=== PATIENT | male | born 1975 | race Caucasian/White ===

== ENCOUNTER 2017-08-22 21:33 | Emergency (ER) | payer MEDICAID ==
[2017-08-22 23:16] LABS: EOSINOPHILS 2.1 % (0-7); HEMATOCRIT 39.1 % (42.0-54.0); IMMATURE GRANULOCYTES 0.2 % (0-5); LYMPHOCYTES 22.9 % (15-50); MCHC 33.2 g/dL (31.0-37.0); MCV 84.1 fL (80.0-100.0); MEAN PLATELET VOLUME 9.1 fL (7.4-10.4); MONOCYTES 10.5 % (2-11); NEUTROPHILS 63.3 % (40-80); PLATELET COUNT 214 10x3/uL (130-400); RBC 4.65 10x6/uL (4.20-6.10); WBC 6.3 10x3/uL (4.8-10.8)
[2017-08-22 23:33] LABS: ALBUMIN 3.6 g/dL (3.4-5.0); ANION GAP 14.9 mmol/L (8-16); BILIRUBIN - TOTAL 0.3 mg/dL (0.2-1.3); CALCIUM 8.5 mg/dL (8.5-10.1); CARBON DIOXIDE 25.7 mmol/L (21.0-32.0); CREATININE - SERUM 1.2 mg/dL (0.6-1.3); POTASSIUM - SERUM 3.6 mmol/L (3.5-5.1); PROTEIN - SERUM 6.7 g/dL (6.4-8.2)
[2017-08-23 00:28] LABS: APPEARANCE CLEAR (CLEAR); BILIRUBIN NEGATIVE (NEGATIVE); COLOR YELLOW (YELLOW); GLUCOSE NEGATIVE (NEGATIVE); KETONE NEGATIVE (NEGATIVE); NITRITE NEGATIVE (NEGATIVE); PROTEIN NEGATIVE (NEGATIVE); UROBILINOGEN NORMAL (NORMAL)
[2017-08-23 00:29] LABS: BACTERIA NONE SEEN /hpf (NONE SEEN); EPITHELIAL CELLS 0-5 /hpf (0-5); RED CELLS - URINE 0-5 /hpf (0-5); WHITE CELLS - URINE 0-5 /hpf (0-5)
== END 2017-08-23 03:00 | disposition home or self-care (01) ==
LOC: D.ER 21:33
PROVIDERS: Family Medicine
DX: R10.31 Right lower quadrant pain (principal); Z85.038 Personal history of other malignant neoplasm of large intestine

== ENCOUNTER 2017-08-25 07:47 | Emergency (ER) | payer MEDICAID | END 2017-08-25 08:50 | disposition home or self-care (01) | LOC: D.ER 07:47 | DX: S60.222A Contusion of left hand, initial encounter (principal); X50.1XXA Overexertion from prolonged static or awkward postures, initial encounter; Y93.89 Activity, other specified; Y92.89 Other specified places as the place of occurrence of the external cause; S63.92XA Sprain of unspecified part of left wrist and hand, initial encounter; S63.502A Unspecified sprain of left wrist, initial encounter ==

== ENCOUNTER 2017-08-27 20:09 | Emergency (ER) | payer MEDICAID, SELFPAY ==
[2017-08-27 20:40] LABS: BASOPHILS 0.5 % (0-2); EOSINOPHILS 0.5 % (0-7); HEMATOCRIT 42.7 % (42.0-54.0); HEMOGLOBIN 14.3 g/dL (13.5-17.5); IMMATURE GRANULOCYTES 0.3 % (0-5); LYMPHOCYTES 14.6 % (15-50); MCH 28.3 pg (26.0-34.0); MCHC 33.5 g/dL (31.0-37.0); MCV 84.4 fL (80.0-100.0); MEAN PLATELET VOLUME 9.2 fL (7.4-10.4); MONOCYTES 6.4 % (2-11); NEUTROPHILS 77.7 % (40-80); PLATELET COUNT 236 10x3/uL (130-400); RBC 5.06 10x6/uL (4.20-6.10); RDW 13.4 % (11.5-14.5); WBC 10.6 10x3/uL (4.8-10.8)
[2017-08-27 21:14] LABS: ALKALINE PHOSPHATASE 91 U/L (46-116); ALT (SGPT) 24 U/L (10-68); BILIRUBIN - TOTAL 0.56 mg/dL (0.2-1.3); CALCIUM 8.9 mg/dL (8.5-10.1); CARBON DIOXIDE 24.1 mmol/L (21.0-32.0); CHLORIDE - SERUM 104 mmol/L (98-107); CREATININE - SERUM 1.1 mg/dL (0.6-1.3); POTASSIUM - SERUM 3.7 mmol/L (3.5-5.1); PROTEIN - SERUM 7.2 g/dL (6.4-8.2); SODIUM 143 mmol/L (136-145); UREA NITROGEN 16 mg/dL (7-18); eGFR NON AFRICAN AMERICAN 79 mL/min (90-120)
[2017-08-27 21:24] LABS: CALC OSMOLALITY 286 mosm/kg (275-300); GLUCOSE 109 mg/dL (74-106)
== END 2017-08-27 21:35 | disposition home or self-care (01) ==
LOC: D.ER 20:09
PROVIDERS: Emergency Medicine
DX: R10.84 Generalized abdominal pain (principal); Z85.038 Personal history of other malignant neoplasm of large intestine

== ENCOUNTER 2018-02-06 17:25 | Emergency (ER) | payer SELFPAY ==
[~2018-02-06] VITALS: Ht 165.1 cm; Wt 81.8 kg
[2018-02-06 17:35] VITALS: Ht 165.1 cm; Wt 81.8 kg
[2018-02-06] MEDS ORDERED: ULTRAM50 MG PO ×2 (17:36→20:50)
[2018-02-06] MEDS ORDERED: PHENERGAN25 M1 PO (17:37)
[2018-02-06 18:34] LABS: BASOPHILS 0.7 % (0-2); EOSINOPHILS 2.9 % (0-7); HEMATOCRIT 41.3 % (42.0-54.0); HEMOGLOBIN 13.9 g/dL (13.5-17.5); IMMATURE GRANULOCYTES 0.7 % (0-5); LYMPHOCYTES 15.4 % (15-50); MCH 28.5 pg (26.0-34.0); MCHC 33.7 g/dL (31.0-37.0); MCV 84.6 fL (80.0-100.0); MEAN PLATELET VOLUME 9.1 fL (7.4-10.4); MONOCYTES 6.6 % (2-11); NEUTROPHILS 73.7 % (40-80); PLATELET COUNT 281 10x3/uL (130-400); RBC 4.88 10x6/uL (4.20-6.10); RDW 12.9 % (11.5-14.5); WBC 10.7 10x3/uL (4.8-10.8)
[2018-02-06 19:00] LABS: ALBUMIN 3.7 g/dL (3.4-5.0); ALKALINE PHOSPHATASE 85 U/L (46-116); ALT (SGPT) 23 U/L (10-68); BILIRUBIN - TOTAL 0.47 mg/dL (0.2-1.3); CALC OSMOLALITY 283 mosm/kg (275-300); CALCIUM 9.3 mg/dL (8.5-10.1); CARBON DIOXIDE 28.6 mmol/L (21.0-32.0); CHLORIDE - SERUM 105 mmol/L (98-107); CREATININE - SERUM 1.1 mg/dL (0.6-1.3); GLUCOSE 88 mg/dL (74-106); POTASSIUM - SERUM 3.6 mmol/L (3.5-5.1); PROTEIN - SERUM 7.3 g/dL (6.4-8.2); SODIUM 142 mmol/L (136-145); UREA NITROGEN 17 mg/dL (7-18); eGFR NON AFRICAN AMERICAN 79 mL/min (90-120)
[2018-02-06 21:22] VITALS: BP 147/96
== END 2018-02-06 21:23 | disposition home or self-care (01) ==
LOC: D.ER 17:25
PROVIDERS: Emergency Medicine
DX: R10.31 Right lower quadrant pain (principal); Z85.038 Personal history of other malignant neoplasm of large intestine; Z93.3 Colostomy status

== ENCOUNTER 2018-06-18 12:31 | Emergency (ER) | payer SELFPAY ==
[~2018-06-18] VITALS: Ht 165.1 cm; Wt 79.5 kg
[~2018-06-18 12:31] MED LIST: PHENERGAN25 M1 PO; ULTRAM50 MG PO
[2018-06-18 12:57] VITALS: BP 140/83
[2018-06-18 14:15] LABS: BASOPHILS 0.5 % (0-2); EOSINOPHILS 0.9 % (0-7); HEMATOCRIT 42.5 % (42.0-54.0); HEMOGLOBIN 14.1 g/dL (13.5-17.5); IMMATURE GRANULOCYTES 0.7 % (0-5); LYMPHOCYTES 13.6 % (15-50); MCH 27.5 pg (26.0-34.0); MCHC 33.2 g/dL (31.0-37.0); MCV 82.8 fL (80.0-100.0); MEAN PLATELET VOLUME 9.3 fL (7.4-10.4); MONOCYTES 9.6 % (2-11); NEUTROPHILS 74.7 % (40-80); PLATELET COUNT 298 10x3/uL (130-400); RBC 5.13 10x6/uL (4.20-6.10); RDW 13.6 % (11.5-14.5); WBC 9.9 10x3/uL (4.8-10.8)
[2018-06-18 14:36] LABS: ALBUMIN 3.9 g/dL (3.4-5.0); ALKALINE PHOSPHATASE 94 U/L (46-116); ALT (SGPT) 25 U/L (10-68); BILIRUBIN - TOTAL 0.51 mg/dL (0.2-1.3); CALC OSMOLALITY 281 mosm/kg (275-300); CALCIUM 9.1 mg/dL (8.5-10.1); CARBON DIOXIDE 24.1 mmol/L (21.0-32.0); CHLORIDE - SERUM 103 mmol/L (98-107); GLUCOSE 103 mg/dL (74-106); POTASSIUM - SERUM 4.2 mmol/L (3.5-5.1); PROTEIN - SERUM 7.2 g/dL (6.4-8.2); SODIUM 141 mmol/L (136-145); UREA NITROGEN 16 mg/dL (7-18); eGFR NON AFRICAN AMERICAN 88 mL/min (90-120)
[2018-06-18 14:55] LABS: AMYLASE - SERUM 99 U/L (25-115); LIPASE 188 U/L (73-393)
[2018-06-18] MEDS ORDERED: ULTRAM50 MG PO (17:56)
[2018-06-19 10:54] VITALS: Ht 165.1 cm; Wt 79.5 kg
== END 2018-07-01 18:31 | disposition home or self-care (01) ==
LOC: D.ER 12:31
PROVIDERS: Family Medicine
DX: R10.31 Right lower quadrant pain (principal); K94.19 Other complications of enterostomy